=== PATIENT | female | born 1985 | race Two or more races ===

== ENCOUNTER 2021-04-27 00:06 | Inpatient (IN) | payer OTHER ==
[~2021-04-27] VITALS: Ht 172.7 cm; Wt 80.3 kg
[2021-04-28] MEDS ORDERED: TRI-SPRINTEC T1 EACH (13:32)
[2021-04-28] MEDS ORDERED: PRENATAL + DHA1 EAC1 PO (13:32)
[2021-04-29] MEDS ORDERED: NAPR500T14 PO (08:34)
== END 2021-04-29 15:24 | disposition home or self-care (01) | DRG 807 ==
LOC: OB/GYN 00:06 → LDR 00:06 → OB/GYN 02:23
PROVIDERS: ADMIT Obstetrics & Gynecology; ATTEND Obstetrics & Gynecology
PROC: 10E0XZZ Delivery of Products of Conception, External Approach (ICD-10-PCS; principal; 2021-04-27)
PROC: 0KQM0ZZ Repair Perineum Muscle, Open Approach (ICD-10-PCS; 2021-04-27)
PROC: 4A1HXFZ Monitoring of Products of Conception, Cardiac Rhythm, External Approach (ICD-10-PCS; 2021-04-27)
DX: O99.824 Streptococcus B carrier state complicating childbirth (principal); O70.1 Second degree perineal laceration during delivery; Z37.0 Single live birth; Z3A.40 40 weeks gestation of pregnancy